=== PATIENT | male | born 1980 | race Caucasian/White ===

== ENCOUNTER 2016-11-06 21:36 | Emergency (ER) | payer OTHER ==
[~2016-11-06 21:36] MED LIST: NAPROSYN500 MG PO; NORCO 5/3251 TABLET PO; PEN-VEE K,VEET500 MG PO
[2016-11-07] MEDS ORDERED: KEFLEX500 MG PO (00:05)
[2016-11-07] MEDS ORDERED: MOTRIN800 MG PO (00:05)
[2016-11-07 00:44] VITALS: BP 147/100
== END 2016-11-07 00:44 | disposition home or self-care (01) ==
LOC: EME 21:36
PROC: 3E0234Z Introduction of Serum, Toxoid and Vaccine into Muscle, Percutaneous Approach (ICD-10-PCS; principal; 2016-11-07)
DX: S90.852A Superficial foreign body, left foot, initial encounter (principal); T63.441A Toxic effect of venom of bees, accidental (unintentional), initial encounter; Z23 Encounter for immunization; Z91.030 Bee allergy status; W45.8XXA Other foreign body or object entering through skin, initial encounter
CPT/HCPCS: 73630; 99281; 99283